=== PATIENT | male | born 1965 | race Two or more races ===

== ENCOUNTER 2023-05-07 13:28 | Emergency (ER) | payer OTHER ==
[~2023-05-07] VITALS: Ht 185.4 cm; Wt 93.0 kg
[2023-05-07 14:43] LABS: Calcium 9.3 mg/dL (8.5-10.1)
[2023-05-07 14:46] LABS: Bilirubin, Total 0.9 mg/dL (0.2-1.0); Total Protein 7.8 g/dL (6.4-8.2)
[2023-05-07 15:20] LABS: Basophils # (auto) 0 10 ^3/uL (0-0.2); Basophils % (auto) 0.5 % (0.0-2.0); Eosinophils # (auto) 0 10 ^3/uL (0-0.8); Eosinophils % (auto) 0.3 % (0.0-7.0); Hemoglobin 14.5 g/dL (13.5-17.5); Lymphocytes # (auto) 1.8 10 ^3/uL (0.4-5.4); Mean Corpuscular Hemoglobin 26.8 pg (28.0-32.0); Mean Corpuscular Hgb Conc. 32.2 g/dL (32.0-36.0); Mean Corpuscular Volume 83.3 fL (80.0-100.0); Monocytes # (auto) 0.4 10 ^3/uL (0-1.3); Monocytes % (auto) 8.5 % (0.0-12.0); Neutrophils % (auto) 47.7 % (37.0-80.0); Nucleated Red Blood Cells % 0.3 %; Red Cell Distribution Width 13.3 % (11.8-14.3); White Blood Cell 4.2 10^3/uL (4.4-10.8)
[2023-05-07] MEDS ORDERED: LIDOCAINE 2% JELLY 11ml (GLYDO) ONE (15:48)
[2023-05-07] MEDS ORDERED: TAMSULOSIN HYDROCHLORIDE 0.4 MG CAP PO ONE (17:30)
[2023-05-07 17:50] VITALS: BP 108/72; PULSE 67; RESP 18; TEMP 98.2; O2SAT 98
== END 2023-05-07 17:53 ==
LOC: ER 13:28
DX: R33.9 Retention of urine, unspecified (principal); I10 Essential (primary) hypertension; E11.9 Type 2 diabetes mellitus without complications; E78.5 Hyperlipidemia, unspecified
CPT/HCPCS: 36415; 51702; 74176; 80053; 85025